=== PATIENT | male | born 1935 | race Two or more races ===

== ENCOUNTER 2019-06-19 14:32 | Emergency (ER) | payer MEDICARE, OTHER ==
[~2019-06-19] VITALS: Ht 172.7 cm; Wt 82.6 kg
[2019-06-19] MEDS ORDERED: NOREPINEPHRINE 8 MG/250ML KIT 250 ML IV ONE (16:38)
[2019-06-19] MEDS ORDERED: NOREPINEPHRINE 8 MG/250ML KIT 250 ML IV SCH ×2 (16:39→16:45)
[2019-06-19 17:14] VITALS: BP 105/66
== END 2019-06-19 17:28 | disposition short-term general hospital (02) ==
LOC: EDBD 14:32 → ER 14:38
DX: S35.3 Injury of portal or splenic vein and branches (principal); I48.91 Unspecified atrial fibrillation; V49.49XA Driver injured in collision with other motor vehicles in traffic accident, initial encounter; Y93.89 Activity, other specified; Y99.8 Other external cause status; Y92.488 Other paved roadways as the place of occurrence of the external cause
CPT/HCPCS: 36430; 74176; 86850; 86900; 86901; 86920; 99291; L0120; P9016